=== PATIENT | male | born 1950 | race Caucasian/White ===

== ENCOUNTER 2016-12-21 10:31 | Emergency (ER) | payer MEDICARE, OTHER ==
[2016-12-21 10:50] VITALS: RESP 18
[2016-12-21] MEDS ORDERED: SODIUM CHLORIDE 0.9% 1,000 ML IV STA ×2 (11:34)
[2016-12-21] MEDS ORDERED: KETOROLAC 30 MG/ML 1 ML VIAL IVP STA (11:34)
[2016-12-21] MEDS ORDERED: MORPHINE SULFATE 4 MG/ML SYRINGE IV STA (11:34)
[2016-12-21] MEDS ORDERED: RX INFO: IV CONTRAST WAS GIVEN 1 EACH MISC MISCELLANE PRN (11:34)
[2016-12-21] MEDS ORDERED: SODIUM CHLORIDE 0.9% 500 ML IV STA (11:34)
[2016-12-21] MEDS ORDERED: ONDANSETRON 4 MG/2 ML VIAL IVP STA (11:34)
[2016-12-21 11:46] LABS: Basophils % (A) 0 %; Eosinophils # (A) 0.1 k/uL (0-0.7); Eosinophils % (A) 0 %; HCT 44.3 % (39.0-53.0); HDW 2.57; HGB 15.4 gm/dL (13.0-17.5); Luc # (Auto) 0.15; Luc % (Auto) 1; Lymphocytes % (A) 7 %; MCH 30.8 pg (25.0-35.0); MCHC 34.8 g/dL (31.0-37.0); MCV 88.5 fL (80.0-100.0); Mean Platelet Volume 7.1; Monocytes # (A) 0.8 k/uL (0-1.0); Monocytes % (A) 6 %; Neutrophils # (A) 12.6 k/uL (1.3-7.7); Neutrophils % (A) 86 %; RBC 5.01 m/uL (4.30-5.90); RDW 13.1 % (11.5-15.5); WBC 14.6 k/uL (3.8-10.6); WBC (Perox) 14.84
[2016-12-21 11:56] LABS: Calcium 9.4 mg/dL (8.4-10.2); Potassium 4.4 mmol/L (3.5-5.1); Total Bilirubin 1.4 mg/dL (0.2-1.3); Total Protein 7.2 g/dL (6.3-8.2)
[2016-12-21 11:57] LABS: Appearance,Urine Clear (Clear); Bilirubin,Urine Negative (Negative); Glucose,Urine (UA) Negative (Negative); Ketones,Urine 2+ (Negative); Leukocyte Esterase,Urine Negative (Negative); Mucus,Urine Rare /hpf; Nitrite,Urine Negative (Negative); PH, Urine 6.5 (5.0-8.0); Particle Count 1474; Protein,Urine Trace (Negative); RBC,Urine 79 /hpf (0-5); UA Billing (MACRO vs. MICRO) MICRO; Urobilinogen,Urine <2.0 mg/dL (<2.0); WBC,Urine 2 /hpf (0-5)
--- NOTE | 2016-12-21 12:14 | CT ---
EXAMINATION TYPE: CT abdomen pelvis wo con DATE OF EXAM: 12/21/2016 COMPARISON: NONE HISTORY: Rt flank pain CT DLP: 1117 mGycm Examination of the solid and hollow viscera is limited given the lack of contrast. FINDINGS: LUNG BASES: No evidence for nodule. No evidence for infiltrate. LIVER/GB: The gallbladder is unremarkable. Hypoattenuating hepatic lesions left hepatic lobe likely r eflect cysts. PANCREAS: No pancreatic mass identified. No inflammatory process seen. SPLEEN: No evidence for splenomegaly. No intrasplenic lesions seen. ADRENALS: No adrenal nodules identified. No evidence for thickening. KIDNEYS: 4 mm calculus within the mid right ureter at the right L4 level resulting in moderate right- sided hydronephrosis. No additional right-sided renal calculi appreciated. 7.3 mm nonobstructing calc ulus mid pole left kidney. No evidence for left-sided hydronephrosis. The urinary bladder is poorly d istended. No renal masses appreciated at this time. BOWEL: Appendix has a normal appearance. No evidence of bowel obstruction. No inflammatory process. M oderate sigmoid diverticulosis without diverticulitis. Lymph nodes: No evidence for adenopathy greater than 1 cm. Abdominal aorta: Atheromatous changes seen. No evidence for aneurysm. Genital organs: Prostate enlargement identified. Other: Fat-containing inguinal hernias noted. IMPRESSION: 1.4 mm calculus within the mid right ureter at the right L4 level resulting in moderate right-sided h ydronephrosis.
--- NOTE | 2016-12-21 12:33 | ED ---
General Adult HPI - General Chief complaint: Abdominal Pain Stated complaint: Kidney Stones Time Seen by Provider: 12/21/16 11:21 Source: patient Mode of arrival: ambulatory Limitations: no limitations - Related Data Home Medications Medication Instructions Recorded Confirmed No Known Home Medications [No 12/21/16 12/21/16 Known Home Medications] Allergies Allergy/AdvReac Type Severity Reaction Status Date / Time No Known Allergies Allergy Verified 12/21/16 11:05 Review of Systems ROS Statement: Those systems with pertinent positive or pertinent negative responses have been documented in the HPI. ROS Other: All systems not noted in ROS Statement are negative. Past Medical History Past Medical History: No Reported History History of Any Multi-Drug Resistant Organisms: None Reported Past Surgical History: Appendectomy Past Psychological History: No Psychological Hx Reported Smoking Status: Never smoker Past Alcohol Use History: Daily Past Drug Use History: None Reported General Exam Limitations: no limitations Course Vital Signs 12/21/16 10:48 Temperature 98.0 F Pulse Rate 54 L Respiratory 18 Rate Blood Pressure 183/86 O2 Sat by Pulse 100 Oximetry Medical Decision Making - Lab Data Result diagrams: 12/21/16 11:21 12/21/16 11:21 Lab Results 12/21/16 12/21/16 12/21/16 Range/Units 11:21 11:21 11:21 WBC 14.6 H (3.8-10.6) k/uL RBC 5.01 (4.30-5.90) m/uL Hgb 15.4 (13.0-17.5) gm/dL Hct 44.3 (39.0-53.0) % MCV 88.5 (80.0-100.0) fL MCH 30.8 (25.0-35.0) pg MCHC 34.8 (31.0-37.0) g/dL RDW 13.1 (11.5-15.5) % Plt Count 250 (150-450) k/uL Neutrophils % 86 % Lymphocytes % 7 % Monocytes % 6 % Eosinophils % 0 % Basophils % 0 % Neutrophils # 12.6 H (1.3-7.7) k/uL Lymphocytes # 1.0 (1.0-4.8) k/uL Monocytes # 0.8 (0-1.0) k/uL Eosinophils # 0.1 (0-0.7) k/uL Basophils # 0.0 (0-0.2) k/uL Sodium 137 (137-145) mmol/L Potassium 4.4 (3.5-5.1) mmol/L Chloride 103 (98-107) mmol/L Carbon Dioxide 22 (22-30) mmol/L Anion Gap 12 mmol/L BUN 18 (9-20) mg/dL Creatinine 1.64 H (0.66-1.25) mg/dL Est GFR (MDRD) Af Amer 51 (>60 ml/min/1.73 sqM) Est GFR (MDRD) Non-Af 42 (>60 ml/min/1.73 sqM) Glucose 123 H (74-99) mg/dL Calcium 9.4 (8.4-10.2) mg/dL Total Bilirubin 1.4 H (0.2-1.3) mg/dL AST 21 (17-59) U/L ALT 27 (21-72) U/L Alkaline Phosphatase 68 (38-126) U/L Total Protein 7.2 (6.3-8.2) g/dL Albumin 4.3 (3.5-5.0) g/dL Amylase 48 (30-110) U/L Lipase 31 (23-300) U/L Urine Color Yellow Urine Appearance Clear (Clear) Urine pH 6.5 (5.0-8.0) Ur Specific [place] 1.020 (1.001-1.035) Urine Protein Trace H (Negative) Urine Glucose (UA) Negative (Negative) Urine Ketones 2+ H (Negative) Urine Blood Moderate H (Negative) Urine Nitrite Negative (Negative) Urine Bilirubin Negative (Negative) Urine Urobilinogen <2.0 (<2.0) mg/dL Ur Leukocyte Esterase Negative (Negative) Urine RBC 79 H (0-5) /hpf Urine WBC 2 (0-5) /hpf Urine Mucus Rare H (None) /hpf Disposition Clinical Impression: Kidney stone on right side Disposition: HOME SELF-CARE Condition: Good Instructions: Kidney Stones (ED) Referrals: Yanick Mckoy DO [Primary Care Provider] - 1-2 days
[2016-12-21 14:20] VITALS: BP 133/63; PULSE 77; TEMP 98.1
== END 2016-12-21 12:44 | disposition home or self-care (01) ==
LOC: EC 10:31
DX: N20.0 Calculus of kidney (principal); Z90.49 Acquired absence of other specified parts of digestive tract; Z53.20 Procedure and treatment not carried out because of patient's decision for unspecified reasons
CPT/HCPCS: 99284; 96374; 96375 ×2; 96361; 36415; 80053; 82150; 83690; 85025; 81001; 87086; 74176; J2270; J2405; J1885

== ENCOUNTER 2018-12-27 10:49 | Day surgery (SDC) | payer OTHER ==
[2018-12-25 08:43] VITALS: BMI 26.9
[~2018-12-27 10:49] MED LIST: LACTATED RINGERS 1,000 ML IV SCH
[2018-12-27 11:58] VITALS: TEMP 98.1
[2018-12-27] MEDS ORDERED: LIDOCAINE 1% 20 ML VIAL (10MG/ML) FOR IV START INTRADERMA ONE (12:08)
[2018-12-27] MEDS ORDERED: PROPOFOL 10 MG/ML 20 ML VIAL IV ONE (12:22)
--- NOTE | 2018-12-27 12:40 | P.PCN ---
Date of Procedure: 12/27/18 Procedure(s) Performed: BRIEF HISTORY: Patient is a 68-year-old pleasant male scheduled for an elective colonoscopy as a part of screening as a part of evaluation of an episode of severe rectal bleeding that lasted for a day about 2 months ago.. PROCEDURE PERFORMED: Colonoscopy. PREOPERATIVE DIAGNOSIS: Rectal bleeding. IV sedation per Anesthesia. PROCEDURE: After informed consent was obtained, the patient, was brought into the endoscopy unit. IV sedation was administered by Anesthesia under continuous monitoring. Digital rectal examination was normal. Initially the Olympus CF-160 flexible video colonoscope was then inserted in the rectum, gradually advanced into the cecum without any difficulty. Careful examination was performed as the scope was gradually being withdrawn. Ileocecal valve and the appendiceal orifice were visualized and appeared normal. Prep was excellent. Mucosa of the cecum, ascending colon, transverse colon, descending colon, sigmoid colon, and rectum appeared normal. Retroflexion was performed in the rectum and no lesions were seen. Scattered diffuse diverticulosis. The patient tolerated the procedure well. IMPRESSION: Normal-appearing colon from rectum to cecum with no evidence of colorectal neoplasia Scattered sigmoid diverticulosis . RECOMMENDATIONS: Findings of this examination were discussed with the patient as well as his family. He was advised to be a high-fiber diet. He can have a repeat screening colonoscopy in 10 years.
[2018-12-27 13:06] VITALS: RESP 18
[2018-12-27 13:07] VITALS: BP 139/83; PULSE 68
== END 2018-12-27 13:15 | disposition home or self-care (01) ==
LOC: ORWHC2ENDO 10:49
PROVIDERS: ATTEND Internal Medicine Gastroenterology
DX: K57.30 Diverticulosis of large intestine without perforation or abscess without bleeding (principal)
CPT/HCPCS: 45378; J2704